=== PATIENT | female | born 1955 | race Two or more races ===

== ENCOUNTER 2017-11-20 16:28 | Inpatient (IN) | payer MEDICAID ==
[~2017-11-20] VITALS: Ht 152.4 cm; Wt 60.5 kg
[~2017-11-20 16:28] MED LIST: ACYCLOVIR400 MG PO; BUFFERIN LOW DO81 M1 PO; DORZOLAMIDE HYD10 M5 OP; GABAPENTIN300 M2 PO; LOVAZA1 G1 PO; NOR5 PO; SYSTANE ULTRA OU; TRAVATAN Z5 ML OU; ZOC20 PO
[2017-11-20 17:42] LABS: microscopic required? YES; urine erythrocyte TRACE (NEGATIVE)
[2017-11-20 17:45] LABS: BASOPHIL % 0.7 % (0-2); PLATELET COUNT 328 x10^3mcL (130-400); RED CELL DISTRIBUTION WIDTH 12.5 % (11.5-14.5)
[2017-11-20 18:08] LABS: CALCIUM 8.9 mg/dL (8.5-10.1); CARBON DIOXIDE 25.8 mmol/L (21-32); CHLORIDE SERUM 101 mmol/L (98-107); CREATININE SERUM 0.7 mg/dL (0.6-1.0); GFR1 > 60 mL/min; GLUCOSE SERUM 104 mg/dL (74-106); POTASSIUM SERUM 3.6 mmol/L (3.5-5.1); SODIUM SERUM 136 mmol/L (136-145)
[2017-11-20 18:11] LABS: ALBUMIN 4.1 g/dL (3.4-5.0); ALKALINE PHOSPHATASE 95 U/L (46-116); ALT/SGPT 31 U/L (14-59); AST/SGOT 18 U/L (15-37); BILIRUBIN TOTAL 0.25 mg/dL (0.20-1.00); LIPASE 231 IU/L (73-393)
[2017-11-20 18:14] LABS: TOTAL PROTEIN, SERUM 8.3 g/dL (6.4-8.2)
[2017-11-20] MEDS ORDERED: CARDURA2 MG PO (18:49)
[2017-11-20] MEDS ORDERED: LATANOPROST2.5 ML (18:50)
[2017-11-20 19:40] VITALS: BP 158/75
[2017-11-20 19:58] VITALS: BP 158/75
[2017-11-20 20:17] LABS: AMPHETAMINE QUAL UR NONE DETECTED (NEG <=1000)
[2017-11-20 20:20] LABS: MAGNESIUM 2.1 mg/dL (1.8-2.4); PHOSPHOROUS 4.3 mg/dL (2.5-4.9)
[2017-11-20 20:24] LABS: CHOLESTEROL/HDL RATIO 6.3; T3 TOTAL 0.97 ng/mL
[2017-11-20 20:29] LABS: FREE T4 1.03 ng/dL (0.76-1.46); T4(THYROXINE) 9.5 ug/dL (4.7-13.3)
[2017-11-20 22:46] VITALS: BP 129/78
[2017-11-21 06:22] VITALS: BP 100/57
[2017-11-21 07:35] LABS: CALCIUM 8.1 mg/dL (8.5-10.1); CARBON DIOXIDE 23.8 mmol/L (21-32); CHLORIDE SERUM 110 mmol/L (98-107); CREATININE SERUM 0.5 mg/dL (0.6-1.0); GFR1 > 60 mL/min; GLUCOSE SERUM 92 mg/dL (74-106); POTASSIUM SERUM 3.6 mmol/L (3.5-5.1); SODIUM SERUM 142 mmol/L (136-145)
[2017-11-21 07:37] LABS: BASOPHIL % 0.3 % (0-2); PLATELET COUNT 270 x10^3mcL (130-400); RED CELL DISTRIBUTION WIDTH 12.6 % (11.5-14.5)
[2017-11-21 08:51] VITALS: BP 106/61
[2017-11-21 12:30] VITALS: BP 107/60
[2017-11-21 16:34] VITALS: BP 110/62
[2017-11-21 20:06] VITALS: BP 131/76
[2017-11-22 05:42] VITALS: BP 95/52
[2017-11-22 06:36] LABS: BASOPHIL % 0.4 % (0-2); PLATELET COUNT 294 x10^3mcL (130-400); RED CELL DISTRIBUTION WIDTH 12.6 % (11.5-14.5)
[2017-11-22 06:53] VITALS: Ht 152.4 cm; Wt 60.5 kg
[2017-11-22 07:06] LABS: CALCIUM 8.8 mg/dL (8.5-10.1); CARBON DIOXIDE 21.7 mmol/L (21-32); CHLORIDE SERUM 109 mmol/L (98-107); CREATININE SERUM 0.6 mg/dL (0.6-1.0); GFR1 > 60 mL/min; GLUCOSE SERUM 94 mg/dL (74-106); MAGNESIUM 2.1 mg/dL (1.8-2.4); PHOSPHOROUS 4.9 mg/dL (2.5-4.9); POTASSIUM SERUM 3.6 mmol/L (3.5-5.1); SODIUM SERUM 142 mmol/L (136-145)
[2017-11-22 09:17] VITALS: BP 122/62
[2017-11-22 13:08] VITALS: BP 101/55
[2017-11-22] MEDS ORDERED: PRI20 PO (13:35)
[2017-11-22] MEDS ORDERED: MAC100 PO (13:47)
[2017-11-22 14:08] VITALS: BP 101/55
== END 2017-11-22 15:41 | disposition home or self-care (01) | DRG 243 ==
LOC: ED 16:28 → DU 19:05
PROVIDERS: Emergency Medicine; Family Medicine; Internal Medicine Gastroenterology
PROC: 0D758ZZ Dilation of Esophagus, Via Natural or Artificial Opening Endoscopic (ICD-10-PCS; principal; 2017-11-22 08:00)
PROC: 0DB78ZX Excision of Stomach, Pylorus, Via Natural or Artificial Opening Endoscopic, Diagnostic (ICD-10-PCS; 2017-11-22 08:00)
PROC: 0DJD8ZZ Inspection of Lower Intestinal Tract, Via Natural or Artificial Opening Endoscopic (ICD-10-PCS; 2017-11-22 08:00)
DX: K22.2 Esophageal obstruction (principal); N12 Tubulo-interstitial nephritis, not specified as acute or chronic; E87.8 Other disorders of electrolyte and fluid balance, not elsewhere classified; K29.00 Acute gastritis without bleeding; I10 Essential (primary) hypertension; Z88.6 Allergy status to analgesic agent; Z88.8 Allergy status to other drugs, medicaments and biological substances; Z86.73 Personal history of transient ischemic attack (TIA), and cerebral infarction without residual deficits; H40.9 Unspecified glaucoma; Z90.710 Acquired absence of both cervix and uterus; Z83.3 Family history of diabetes mellitus; Z80.9 Family history of malignant neoplasm, unspecified; Z87.891 Personal history of nicotine dependence; E66.3 Overweight; Z68.26 Body mass index [BMI] 26.0-26.9, adult; R13.10 Dysphagia, unspecified; K64.8 Other hemorrhoids; K21.0 Gastro-esophageal reflux disease with esophagitis; K44.9 Diaphragmatic hernia without obstruction or gangrene
CPT/HCPCS: 43235; 45378; 83880; 84439; C1769; C9113; J0696; J1200; J1610; J2250; J2310; J3010; J3490; J7030; Q0092